=== PATIENT | female | born 1935 | race African-American/Black ===

== ENCOUNTER 2019-02-03 17:24 | Inpatient (IN) | payer BC, OTHER ==
[~2019-02-03] VITALS: Ht 160 cm; Wt 51.8 kg
[2019-02-03 18:26] LABS: Basophils # (auto) 0 uL; Basophils % (auto) 0.5 % (0.0-2.0); Eosinophils # (auto) 0 uL; Eosinophils % (auto) 0.6 % (0.0-7.0); Hematocrit 42.5 % (36.0-46.0); Hemoglobin 13.8 g/dL (12.2-16.2); Lymphocytes # (auto) 0.9 uL; Lymphocytes % (auto) 12.9 % (10.0-50.0); Mean Corpuscular Hemoglobin 29.5 pg (28.0-32.0); Mean Corpuscular Hgb Conc. 32.5 g/dL (32.0-36.0); Mean Corpuscular Volume 90.5 fL (80.0-100.0); Monocytes # (auto) 0.2 uL; Monocytes % (auto) 3.3 % (0.0-12.0); Neutrophils # (auto) 5.8 uL; Neutrophils % (auto) 82.7 % (37.0-80.0); Platelet Count (auto) 128 10^3/uL (140-450); Red Blood Cells 4.69 10^6/uL (4.0-5.20); Red Cell Distribution Width 16.4 % (11.8-14.3)
[2019-02-03 18:43] LABS: Albumin 3.6 g/dL (3.4-5.0); Amylase 101 U/L (25-115); Anion Gap 5 (5-15); Blood Urea Nitrogen 17 mg/dL (7-18); Calcium 8.9 mg/dL (8.5-10.1); Carbon Dioxide 27 mmol/L (21-32); Chloride 107 mmol/L (98-107); Glucose 123 mg/dL (74-106); Lipase 92 U/L (73-393); Potassium 4.5 mmol/L (3.5-5.1); Sodium 139 mmol/L (136-145)
[2019-02-03 18:49] LABS: Alanine Aminotransferase 20 U/L (13-56); Alkaline Phosphatase 60 U/L (45-117); Aspartate Aminotransferase 20 U/L (15-37); BUN/Creatinine Ratio 13.6; Bilirubin, Total 0.4 mg/dL (0.2-1.0); GFR African American 53 mL/min; GFR Non-African American 44 mL/min
[2019-02-03] MEDS ORDERED: cloNIDine HCL 0.1 MG TAB PO ONE (22:00)
[2019-02-03] MEDS ORDERED: ACETAMINOPHEN 500 MG TAB PO PRN (22:45)
[2019-02-03] MEDS ORDERED: hydrALAZINE HCL 20 MG/ML VL IV ONE ×2 (22:45)
[2019-02-03] MEDS ORDERED: ONDANSETRON HCL 4 MG/2 ML VIAL IV PRN (23:45)
[2019-02-03] MEDS ORDERED: ACETAMINOPHEN 325 MG TAB PO PRN (23:45)
[2019-02-04] VITALS (7 sets, daily range): BP systolic 120–163; BP diastolic 71–87
[2019-02-04] MEDS ORDERED: LACTULOSE 20Gm/30ML SOLN PO ONE (01:00)
[2019-02-04] MEDS: SODIUM CHLORIDE 0.9% 1,000 ML IV SCH ×2 (03:48→13:52)
--- NOTE | 2019-02-04 04:07 | NUR ---
MS admit from ER NICA MOREIRA admitted to tele/MS after SBAR received. Patient oriented to GLADIS LONDON, primary RN, unit, room, bed, and unit policies regarding patient care and visiting hours. Patient weighed by bed scale and encouraged to call if they need something. All questions and concerns addressed, patient verbalized understanding. Unable to do medication reconciliation due to patient can't remember medications. Will call daughter in am.
[2019-02-04] MEDS: metroNIDAZOLE 500MG/100ML 100 ML IV SCH ×3 (05:58→21:29)
[2019-02-04] MEDS: PANTOPRAZOLE 40 MG TAB PO SCH (06:05)
--- NOTE | 2019-02-04 06:30 | NUR ---
Called patient's daughter Surekha to get list of medications, no answer, left message.
[2019-02-04 08:10] LABS: Basophils # (auto) 0 uL; Basophils % (auto) 0.5 % (0.0-2.0); Eosinophils # (auto) 0 uL; Hematocrit 39.2 % (36.0-46.0); Hemoglobin 12.8 g/dL (12.2-16.2); Lymphocytes # (auto) 1.3 uL; Lymphocytes % (auto) 18.9 % (10.0-50.0); Mean Corpuscular Hemoglobin 29.4 pg (28.0-32.0); Mean Corpuscular Hgb Conc. 32.8 g/dL (32.0-36.0); Mean Corpuscular Volume 89.6 fL (80.0-100.0); Monocytes # (auto) 0.5 uL; Monocytes % (auto) 6.6 % (0.0-12.0); Neutrophils # (auto) 5.1 uL; Platelet Count (auto) 138 10^3/uL (140-450); Red Blood Cells 4.37 10^6/uL (4.0-5.20); Red Cell Distribution Width 16.6 % (11.8-14.3); White Blood Cell 6.9 10^3/uL (4.4-10.8)
[2019-02-04 08:22] LABS: Calcium 9.1 mg/dL (8.5-10.1); Potassium 4.4 mmol/L (3.5-5.1)
[2019-02-04 08:25] LABS: BUN/Creatinine Ratio 13.5
[2019-02-04] MEDS: cefTRIAXone 1GM/50ML D5W 50 ML IV SCH (09:13)
--- NOTE | 2019-02-04 09:18 | NUR ---
INTERNET ASSESSOR RPORTS PT BP IS 163/87, HR 96. NO BP MEDS AVAILABLE, WILL PAGE HOSPTALIST.
--- NOTE | 2019-02-04 10:00 | NUR ---
BROUGHT BEDSIDE COMMODE. NOTIFIED PT TO ASK FOR ASSISTANCE TO COMMODE AND USE CALL LIGHT SO AMBULATION CAN BE ASSESSED. PT VERBALIZED UNDERSTANDING, WILL CONTINUE TO MONITOR.
--- NOTE | 2019-02-04 10:41 | NUR ---
CALLED DR BLANKENSHIP AND LEFT MESSAGE INFORMING MD OF PT BP OF 163/87 AND REQUESTED PRN BP MEDS, AWAITING CALL BACK, DAUGHTER BRANDON CALLED EARLIER AND REPORTS SHE WILL BRING IN PATIENT MEDICATIONS FOR LIST OF HOME MEDS, WILL CONTINUE TO MONITOR.
[2019-02-04] MEDS ORDERED: MORPHINE SULF INJ 2 MG/ML SYRINGE 1ML IV PRN (11:45)
--- NOTE | 2019-02-04 11:47 | NUR ---
SPOKE WITH DR MARTINI. DR MARTINI SAW PATIENT AND DISCUSSED POC. NOTIFIED PT BP 163/87. NEW ORDERS FOR HYDRALAZINE AND MORPHINE PRN, WILL GIVE MEDICATIONS. Addendum: 02/04/19 at 1150 by LEYDI PETER RN GI CONSULT CALLED AND MESSAGE LEFT ALREADY.
[2019-02-04] MEDS: hydrALAZINE HCL 20 MG/ML VL IV PRN (12:12)
[2019-02-04 13:39] LABS: INR 0.99 (0.9-1.15); Prothrombin Time 10.6 sec (9.27-12.13)
--- NOTE | 2019-02-04 15:00 | NUR ---
PT VOIDED AT 10 AM THIS MORNING, MODERATE AMOUNT OF YELLOW URINE. PT HAS NOT BEEN ABLE TO VOID SINCE. DID BLADDER SCAN, BLADDER SCAN SHOWS 185 MLS URINE IN BLADDER. CALLED DR HALL. NOTIFIED PT HAVING TROUBLE VOIDING AND 185 MLS URINE NOTED IN BLADDER. ALSO NOTIFIED PT DOES NOT WANT MORPHINE FOR PAIN AND TYLENOL IS INEFFECTIVE. NEW ORDERS FOR TYLER AND NORCO. WILL CONTINUE TO MONITOR.
--- NOTE | 2019-02-04 15:29 | NUR ---
PT ABLE TO VOID SMALL AMOUNT OF YELLOW URINE ON CHUCKS , BUT STILL REPORTS DIFFICULTY. PRIYA AREA CLEANED. 16 TELUGU TYLER CATHETER INSERTED USING STERILE TECHNIQUE. 10 MLS NS INSERTED INTO BALLOON. OVER 150 MLS YELLOW ORANGE CLEAR URINE RETURNED. PT TOLERATED PROCEDURE WELL, WILL CONTINUE TO MONITOR.
[2019-02-04] MEDS: HYDROcodone-ACET 10/325MG TAB PO PRN ×2 (16:08→23:31)
[2019-02-04 17:29] LABS: Urine Bacteria NONE SEEN /hpf (None Seen); Urine Blood TRACE /uL (Negative); Urine Mucus FEW (None Seen); Urine Specific Gravity 1.019 (1.001-1.035); Urine WBC 227 /hpf (0 - 5); Urine WBC Clumps PRESENT /hpf (None Seen)
--- NOTE | 2019-02-04 17:37 | NUR ---
GOT LIST OF PT HOME MEDICATIONS FROM BRANDON. ADVANCE DIRECTIVE NOT CURRENT, BRANDON REPORTS IT NEEDS TO BE UPDATED, WAITING ON UPDATED ONE. INSURANCE INFORMATION COPIED AND PLACED IN PATIENT CHART. FAMILY REPORTS DR. FARMER IS PT USUAL GI DOCTOR. FAMILY ALSO REPORTS PT DOESN'T SLEEP WELL AT NIGHT AND IS REQUESTING PRN SLEEP MEDICATION. WILL CONTINUE TO MONITOR.
[2019-02-04] MEDS ORDERED: FLUT250M2 INH (21:27)
[2019-02-04] MEDS ORDERED: ATOR10TA52 PO (21:27)
[2019-02-04] MEDS ORDERED: RANI-229 PO (21:27)
[2019-02-04] MEDS ORDERED: TIOT17SP IN (21:27)
[2019-02-04] MEDS ORDERED: FLUT0.05 NAS (21:27)
[2019-02-04] MEDS ORDERED: OME20T PO (21:27)
[2019-02-04] MEDS ORDERED: DICL1KIT TD (21:27)
[2019-02-04] MEDS ORDERED: ALBU1AER4 IN (21:27)
[2019-02-04] MEDS ORDERED: DOCU100T15 PO (21:27)
[2019-02-04] MEDS ORDERED: NITR0.4S29 SL (21:27)
[2019-02-04] MEDS ORDERED: ASPI81CH4 PO (21:27)
[2019-02-05 05:01] VITALS: BP 154/95
[2019-02-05] MEDS: PANTOPRAZOLE 40 MG TAB PO SCH (06:09)
[2019-02-05] MEDS: metroNIDAZOLE 500MG/100ML 100 ML IV SCH ×3 (06:09→21:48)
[2019-02-05 06:20] LABS: Basophils # (auto) 0.1 uL; Basophils % (auto) 0.8 % (0.0-2.0); Eosinophils # (auto) 0 uL; Eosinophils % (auto) 0.5 % (0.0-7.0); Hematocrit 39.3 % (36.0-46.0); Hemoglobin 13.1 g/dL (12.2-16.2); Lymphocytes # (auto) 1.4 uL; Lymphocytes % (auto) 18.1 % (10.0-50.0); Mean Corpuscular Hemoglobin 29.8 pg (28.0-32.0); Mean Corpuscular Hgb Conc. 33.3 g/dL (32.0-36.0); Mean Corpuscular Volume 89.4 fL (80.0-100.0); Monocytes # (auto) 0.6 uL; Monocytes % (auto) 6.9 % (0.0-12.0); Neutrophils # (auto) 5.9 uL; Neutrophils % (auto) 73.7 % (37.0-80.0); Nucleated Red Blood Cells % 0.1 %; Platelet Count (auto) 138 10^3/uL (140-450); Red Blood Cells 4.39 10^6/uL (4.0-5.20); Red Cell Distribution Width 16.1 % (11.8-14.3)
[2019-02-05 06:40] LABS: Potassium 4.5 mmol/L (3.5-5.1)
[2019-02-05 06:44] LABS: Calcium 8.9 mg/dL (8.5-10.1); Magnesium 2.2 mg/dL (1.6-2.6)
[2019-02-05 06:47] LABS: Phosphorus 3.2 mg/dL (2.5-4.90)
[2019-02-05 06:52] LABS: BUN/Creatinine Ratio 15.6
--- NOTE | 2019-02-05 07:20 | NUR ---
Opening Shift Note Assumed care of patient, awake and alert. No S/S of distress/SOB or pain. Instructed on POC and to call for assist PRN, will continue to monitor for changes Q1hr and PRN.
[2019-02-05 08:00] VITALS: BP 162/82
[2019-02-05] MEDS: hydrALAZINE HCL 20 MG/ML VL IV PRN (09:19)
[2019-02-05] MEDS: cefTRIAXone 1GM/50ML D5W 50 ML IV SCH (09:20)
[2019-02-05] MEDS: SODIUM CHLORIDE 0.9% 1,000 ML IV SCH (09:24)
[2019-02-05 12:00] VITALS: BP 155/96
[2019-02-05] MEDS ORDERED: ENOXAPARIN SOD 40 MG/0.4 ML SYRINGE SC SCH (12:00)
[2019-02-05] MEDS ORDERED: ENOXAPARIN SOD 30 MG/0.3 ML SYRINGE SC ONE (12:15)
[2019-02-05] MEDS: D5W/SOD CHLO 0.9% 1,000 ML IV SCH (12:58)
[2019-02-05] MEDS: LACTULOSE 20Gm/30ML SOLN PO PRN ×2 (12:59→21:52)
[2019-02-05 17:00] VITALS: BP 152/96
--- NOTE | 2019-02-05 19:57 | NUR ---
Opening Shift Note Assumed care of patient, awake and alert. No S/S of distress/SOB or pain. Instructed on POC and to call for assist PRN, will continue to monitor for changes Q1hr and PRN. Patient had dinner, no nausea or vomiting noted.
[2019-02-05 22:00] VITALS: BP 152/93
--- NOTE | 2019-02-05 22:30 | NUR ---
PATIENT HAD A LARGE BOWEL MOVEMENT, FORMED, HARD & BROWN. USED BEDSIDE COMMODE.
[2019-02-06] MEDS: D5W/SOD CHLO 0.9% 1,000 ML IV SCH ×2 (01:35→05:19)
--- NOTE | 2019-02-06 02:51 | NUR ---
PATIENT HAD A LARGE LOOSE, BROWN LOOSE STOOL, HAD LACTULOSE DUE TO CONSTIPATION.
[2019-02-06 05:00] VITALS: BP 156/92
[2019-02-06] MEDS: PANTOPRAZOLE 40 MG TAB PO SCH (05:20)
[2019-02-06] MEDS: metroNIDAZOLE 500MG/100ML 100 ML IV SCH ×3 (05:20→21:37)
[2019-02-06 07:01] LABS: Basophils # (auto) 0.1 uL; Basophils % (auto) 0.9 % (0.0-2.0); Eosinophils # (auto) 0.3 uL; Eosinophils % (auto) 3.6 % (0.0-7.0); Hematocrit 39.9 % (36.0-46.0); Hemoglobin 13.3 g/dL (12.2-16.2); Lymphocytes # (auto) 1.4 uL; Lymphocytes % (auto) 19.5 % (10.0-50.0); Mean Corpuscular Hemoglobin 29.8 pg (28.0-32.0); Mean Corpuscular Hgb Conc. 33.2 g/dL (32.0-36.0); Mean Corpuscular Volume 89.9 fL (80.0-100.0); Monocytes # (auto) 0.8 uL; Monocytes % (auto) 10.5 % (0.0-12.0); Neutrophils # (auto) 4.8 uL; Neutrophils % (auto) 65.5 % (37.0-80.0); Nucleated Red Blood Cells % 0.1 %; Platelet Count (auto) 131 10^3/uL (140-450); Red Blood Cells 4.45 10^6/uL (4.0-5.20); Red Cell Distribution Width 16.1 % (11.8-14.3); White Blood Cell 7.3 10^3/uL (4.4-10.8)
[2019-02-06 07:29] LABS: Calcium 8.3 mg/dL (8.5-10.1)
[2019-02-06] MEDS: HYDROcodone-ACET 10/325MG TAB PO PRN ×2 (07:37→17:52)
[2019-02-06 08:00] VITALS: BP 146/82
[2019-02-06 09:00] VITALS: BP 146/82
[2019-02-06] MEDS: cefTRIAXone 1GM/50ML D5W 50 ML IV SCH (09:35)
[2019-02-06] MEDS: ENOXAPARIN SOD 30 MG/0.3 ML SYRINGE SC SCH (09:36)
[2019-02-06 13:00] VITALS: BP 155/88
--- NOTE | 2019-02-06 13:03 | NUR ---
PT Patient had BM during attempt to get her OOB and ambulate during morning PT visit. Addendum: 02/06/19 at 1304 by JENNY CARRASQUILLO PTT Amended: Links added.
[2019-02-06 17:00] VITALS: BP 158/94
--- NOTE | 2019-02-06 19:40 | NUR ---
Opening Shift Note Assumed care of patient, awake and alert. No S/S of distress/SOB or pain. Instructed on POC and to call for assist PRN. Bed in lowest locked position, call light within reach, side rails up x2, fall precautions in place. Will continue to monitor for changes Q1hr and PRN.
[2019-02-06] MEDS: hydrALAZINE HCL 20 MG/ML VL IV PRN (21:37)
[2019-02-06 22:00] VITALS: BP 123/72
[2019-02-07] MEDS: D5W/SOD CHLO 0.9% 1,000 ML IV SCH ×2 (01:50→18:14)
[2019-02-07] MEDS: HYDROcodone-ACET 10/325MG TAB PO PRN ×2 (03:09→13:25)
[2019-02-07 05:25] VITALS: BP 164/89
[2019-02-07] MEDS: metroNIDAZOLE 500MG/100ML 100 ML IV SCH ×3 (05:36→22:02)
[2019-02-07] MEDS: PANTOPRAZOLE 40 MG TAB PO SCH ×2 (05:36→22:03)
[2019-02-07] MEDS: hydrALAZINE HCL 20 MG/ML VL IV PRN (05:37)
--- NOTE | 2019-02-07 07:00 | NUR ---
Opening Shift Note Assumed care of the patient from the weight shifter RN. The patient is A&Ox4, no signs or symptoms of distress. Educated the patient on POC and patient verbalized understanding. The patient's call light is within reach and bed is in the lowest, locked position. Will round hourly and continue to monitor.
[2019-02-07 08:00] VITALS: BP 147/86
[2019-02-07] MEDS: ONDANSETRON HCL 4 MG/2 ML VIAL IV PRN ×2 (08:26→13:26)
[2019-02-07 09:00] VITALS: BP 147/86
[2019-02-07] MEDS: cefTRIAXone 1GM/50ML D5W 50 ML IV SCH (09:03)
[2019-02-07] MEDS: ENOXAPARIN SOD 30 MG/0.3 ML SYRINGE SC SCH (09:42)
--- NOTE | 2019-02-07 12:19 | NUR ---
NUTRITION ASSESSMENT NOTES Please refer to link notes of nutrition screen form filed under the intervention section of the plan of care for further details. Est. Needs: 1550 kcal to 1800 kcal (30-35 kcal/kgBW), 41 gms to 52 gms pro (0.8-1.0 gms/kgBW). Will continue to monitor pertinent labs and reassess nutrient need prn Thank you. Addendum: 02/07/19 at [address] Amended: Links added.
[2019-02-07 13:00] VITALS: BP 141/89
[2019-02-07] MEDS ORDERED: PROMETHAZINE HCL 25 MG/ML 1ML IV PRN (13:45)
--- NOTE | 2019-02-07 14:00 | NUR ---
Dr. Jeffery at bedside Patient to have EGD tomorrow, 02/08
[2019-02-07] MEDS: SIMETHICONE 40 MG/0.6 ML ORAL DROP PO SCH ×3 (14:15→22:02)
[2019-02-07 17:00] VITALS: BP 118/86
[2019-02-07] MEDS: Ensure Enlive Strawberry 8oz Bottle PO SCH (18:13)
[2019-02-07 22:25] VITALS: BP 126/74
[2019-02-08 05:35] VITALS: BP 147/88
[2019-02-08] MEDS: SIMETHICONE 40 MG/0.6 ML ORAL DROP PO SCH ×3 (06:00→18:09)
[2019-02-08] MEDS: metroNIDAZOLE 500MG/100ML 100 ML IV SCH (06:08)
[2019-02-08] MEDS: D5W/SOD CHLO 0.9% 1,000 ML IV SCH (06:37)
--- NOTE | 2019-02-08 07:00 | NUR ---
Opening Shift Note Assumed care of the patient of the patient from the shift boss RN. The patient is A&Ox4, no signs or symptoms of distress. The patient's call light is within reach and bed is in the lowest, locked position. Will round hourly and continue to monitor.
[2019-02-08 07:20] LABS: Basophils # (auto) 0.1 uL; Basophils % (auto) 1.2 % (0.0-2.0); Eosinophils # (auto) 0.3 uL; Eosinophils % (auto) 5.1 % (0.0-7.0); Hematocrit 37.7 % (36.0-46.0); Hemoglobin 12.3 g/dL (12.2-16.2); Lymphocytes # (auto) 1.1 uL; Lymphocytes % (auto) 17.4 % (10.0-50.0); Mean Corpuscular Hemoglobin 29.5 pg (28.0-32.0); Mean Corpuscular Hgb Conc. 32.7 g/dL (32.0-36.0); Mean Corpuscular Volume 90.1 fL (80.0-100.0); Monocytes # (auto) 0.8 uL; Monocytes % (auto) 12.3 % (0.0-12.0); Platelet Count (auto) 123 10^3/uL (140-450); Red Blood Cells 4.19 10^6/uL (4.0-5.20); Red Cell Distribution Width 16.8 % (11.8-14.3); White Blood Cell 6.2 10^3/uL (4.4-10.8)
[2019-02-08 07:39] LABS: BUN/Creatinine Ratio 8.9; Calcium 7.9 mg/dL (8.5-10.1); Magnesium 1.9 mg/dL (1.6-2.6)
[2019-02-08] MEDS: Ensure Enlive Strawberry 8oz Bottle PO SCH ×2 (07:51→18:09)
[2019-02-08 08:00] VITALS: BP 148/83
[2019-02-08] MEDS ORDERED: SODIUM CHLORIDE LOCK 10 ML ONE (08:28)
[2019-02-08] MEDS ORDERED: LIDOCAINE VISCOUS 2% 15ML UD ONE (08:28)
[2019-02-08] MEDS ORDERED: MIDAZOLAM HCL 5 MG/ML-1ML VIAL ONE (08:29)
[2019-02-08] MEDS ORDERED: fentaNYL CITRATE 100 MCG/2 ML VL ONE (08:29)
[2019-02-08] MEDS ORDERED: diphenhdrAMINE HCL 50 MG/1 ML VL ONE (08:29)
[2019-02-08 09:06] VITALS: BP 164/89
[2019-02-08] MEDS: ENOXAPARIN SOD 30 MG/0.3 ML SYRINGE SC SCH (09:30)
[2019-02-08] MEDS: PANTOPRAZOLE 40 MG TAB PO SCH (09:31)
[2019-02-08] MEDS ORDERED: FLUCONAZOLE 100 MG TAB PO SCH (10:00)
--- NOTE | 2019-02-08 11:02 | NUR ---
I faxed home health order to [facility] (previously faxed to [facility]-they will have no nurses until 02/13-also faxed to [facility]).
--- NOTE | 2019-02-08 13:17 | NUR ---
I spoke with Brandy at [facility], they are willing to accept this patient and can see her within 48 hours of discharge. I called [employer] [employer] and left her a message asking for authorization to be sent to them and me as well-awaiting return call.
[2019-02-08 14:35] VITALS: BP 137/86
--- NOTE | 2019-02-08 14:45 | NUR ---
I faxed walker order to [facility] and [facility].
--- NOTE | 2019-02-08 16:20 | NUR ---
Front Wheel Walker Spoke with Vicky from [employer]. The patient will be receiving her walker from , phone number [phone]. should be calling with an ETA for the walker. [facility] Phone number [phone].
--- NOTE | 2019-02-08 16:22 | NUR ---
I called [facility] [phone] to request an ETA for the walker-I spoke with Antonia-they are still working on it and will call the nurse's station with an ETA-I called nurse Ev and provided her with this information as well as giving her the phone numbers for [facility] and [employer] [facility] to give to the patient.
--- NOTE | 2019-02-08 16:28 | NUR ---
assessment Patient is a 83 year old female who is alert and oriented. Patients cognitive abilities are intact. Prior to admission patient lived home with family and functioned with assistance. Per patient she will return home to her prior living arrangements post discharge and family will transport her home. patient informed me she has a fww, cane, and wheelchair for home use. Patient informed me her PCP is Dr Gonzalez. I informed patient she has a right to speak to a social media senior associate regarding all care. I informed patient she has a right to participate in any and all discharge planning. Patient is aware of visiting hours on the hospital floor. I informed patient she has a right to privacy. Patient has a POA and advanced directive. Patient verbalized understanding and agreed to discharge plan. Per ss consult home health safety and PT. order has been sent to [facility] [employer] [facility]. SOC will be 02/10/19. 2nd ss consult fww. MD order has been sent to . [facility] Addendum: 02/08/19 at 1632 by Lillie Odom Amended: Links added.
[2019-02-08 17:54] VITALS: BP 184/97
--- NOTE | 2019-02-08 18:49 | NUR ---
Front wheel walker delivered by [facility]. Granddaughter took it to the car.
== END 2019-02-08 18:50 | disposition home health service (06) | DRG 391 ==
LOC: EDBD 17:24 → ER 17:24 → MERGE 02-04 01:10 → OVERFLOW 02-04 01:10 → CENTRAL 02-04 02:30
PROVIDERS: ADMIT Nurse Practitioner Family; ATTEND Internal Medicine
PROC: 0DB68ZX Excision of Stomach, Via Natural or Artificial Opening Endoscopic, Diagnostic (ICD-10-PCS; 2019-02-08)
PROC: 0DB58ZX Excision of Esophagus, Via Natural or Artificial Opening Endoscopic, Diagnostic (ICD-10-PCS; principal; 2019-02-08 09:22)
DX: K29.70 Gastritis, unspecified, without bleeding (principal); N17.0 Acute kidney failure with tubular necrosis; E86.0 Dehydration; J44.9 Chronic obstructive pulmonary disease, unspecified; I10 Essential (primary) hypertension; K52.9 Noninfective gastroenteritis and colitis, unspecified; K59.00 Constipation, unspecified; K43.9 Ventral hernia without obstruction or gangrene; R62.7 Adult failure to thrive; G89.29 Other chronic pain; Z90.710 Acquired absence of both cervix and uterus; Z79.899 Other long term (current) drug therapy; Z95.0 Presence of cardiac pacemaker; Z88.8 Allergy status to other drugs, medicaments and biological substances
CPT/HCPCS: 36415; 70450; 71045; 74176; 80048; 80053; 81001; 82150; 83690; 83735; 84100; 84484; 85025; 85610; 86850; 86900; 86901; 93005; 94761; 96374; 97116; 97163; 97530; A6257; G0378; J0696; J2250; J2405; J3490; J7042